=== PATIENT | male | born 1990 | race Caucasian/White ===

== ENCOUNTER 2018-12-04 02:44 | Emergency (ER) | payer OTHER ==
[2018-12-04 02:53] VITALS: BP 133/98; PULSE 125; TEMP 97.6; BMI 20.3
[2018-12-04] MEDS ORDERED: AMPICILLIN NA/SULBACTAM NA 1.5 GM in SODIUM CHLORIDE 100 ML IVPB ONE (03:35)
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
== END 2018-12-04 04:49 | disposition short-term general hospital (02) ==
LOC: JER 02:44
PROC: 3E03329 Introduction of Other Anti-infective into Peripheral Vein, Percutaneous Approach (ICD-10-PCS; principal; 2018-12-04)
PROC: 4A07X0Z Measurement of Visual Acuity, External Approach (ICD-10-PCS; 2018-12-04)
DX: S05.12XA Contusion of eyeball and orbital tissues, left eye, initial encounter (principal); Y00.XXXA Assault by blunt object, initial encounter; Y93.89 Activity, other specified; Y92.89 Other specified places as the place of occurrence of the external cause; Y99.8 Other external cause status; Y07.6 Multiple perpetrators of maltreatment and neglect
CPT/HCPCS: 70480-TC; 96365; 99173; 99282-25

== ENCOUNTER 2019-09-28 19:35 | Emergency (ER) | payer OTHER ==
[2019-09-28 19:39] VITALS: BMI 21.7
[2019-09-28 19:53] VITALS: BP 125/71; PULSE 89; TEMP 97.9
--- NOTE | 2019-09-28 22:15 | PDOC ---
Documentation entered by Juancarlos Roman SCRIBE, acting as scribe for Itz Gonzalez MD. Itz Gonzalez MD: This documentation has been prepared by the Abel barr Angel, SCRIBE, under my direction and personally reviewed by me in its entirety. I confirm that the documentation accurately reflects all work, treatment, procedures, and medical decision making performed by me. History of Present Illness - General Chief Complaint: Ear Problem Stated Complaint: NOTED BLOOD FROM LT EAR Time Seen by Provider: 09/28/19 19:41 History Source: Patient Exam Limitations: No Limitations - History of Present Illness Initial Comments: 09/28/19 20:06 The patient is a 29 year old male with no significant past medical history who presents to the ED with blood coming from the left ear. The patient denies any ear pain or trauma. The patients ear is not bleeding here in the ED. Assessment and plan: This is a 29-year-old male who comes in complaining that there was some blood coming from his ear. There is no bleeding from the ear at this time. On my exam there was some small amount of dried blood in the external canal otherwise no evidence of trauma and the tympanic membrane was normal and intact. Patient reassured and discharged home 09/28/19 20:08 Past History - Medical History Allergies/Adverse Reactions: Allergies Allergy/AdvReac Type Severity Reaction Status Date / Time acetaminophen Allergy Verified 07/07/19 06:56 [From Tylenol-Codeine] codeine Allergy Verified 07/07/19 06:56 [From Tylenol-Codeine] Home Medications: Ambulatory Orders NK [No Known Home Medication] 09/28/19 COPD: No Psychiatric Problems: Yes (ANXIETY.) - Surgical History Abdominal Surgery: Yes Appendectomy: Yes - Immunization History Immunization Up to Date: No - Psycho-Social/Smoking History Smoking History: Never smoked Have you smoked in the past 12 months: Yes Number of Cigarettes Smoked Daily: 10 Review of Systems - Review of Systems Able to Perform ROS?: Yes Comments:: 09/28/19 20:09 General: No fevers or chills, no weakness, no weight loss HEENT: +Bleeding from left ear. No change in vision. No sore throat. No ear pain CardioVascular: No chest pain or shortness of breath Respiratory:No cough, or wheezing. Gastrointestinal: no nausea, vomiting, diarrhea or constipation, No rectal bleeding Genitourinary: No dysuria, hematuria, or frequency Musculoskeletal: No joint or muscle pain or swelling Neurologic: No headache, vertigo, dizziness or loss of consciousness Psychiatric: nor depression Skin: No rashes or easy bruising Endocrine: no increased thirst or abnormal weight change Allergic: no skin or latex allergy All other systems reviewed and normal *Physical Exam - Vital Signs Last Vital Signs Temp Pulse Resp BP Pulse Ox 97.9 F 89 16 125/71 96 09/28/19 19:36 09/28/19 19:36 09/28/19 19:36 09/28/19 19:36 09/28/19 19:36 - Physical Exam 09/28/19 20:09 GENERAL: The patient is awake, alert, and fully oriented, in no acute distress. HEAD: Normal with no signs of trauma. EYES: Pupils equal, round and reactive to light, extraocular movements intact, sclera anicteric, conjunctiva clear. EAR: +Small abrasion in the floor of the ear canal. Tympanic membrane intact and normal. EXTREMITIES: Normal range of motion, no edema. NEUROLOGICAL: Normal speech, normal gait. PSYCH: Normal mood, normal affect. SKIN: Warm, Dry, normal turgor, no rashes or lesions noted. Discharge - Discharge Information Problems reviewed: Yes Clinical Impression/Diagnosis: Abrasion of left ear canal Qualifiers: Encounter type: initial encounter Qualified Code(s): S00.412A - Abrasion of left ear, initial encounter Condition: Stable Disposition: HOME - Admission No - Follow up/Referral Referrals: Luis Stafford MD [Primary Care Provider] - - Patient Discharge Instructions Additional Instructions: Return to the emergency department immediately with ANY new, persistent or worsening symptoms. Continue any medications as previously prescribed by your physician. You should follow up with your primary doctor as soon as possible regarding leobardo tapia's emergency department visit. . Please make sure your doctor reviews the results of your emergency evaluation. Thank you for coming to the Emergency Department today for your care. It was a pleasure to see you today. Please note that your evaluation is INCOMPLETE until you follow-up with your doctor. - Post Discharge Activity
== END 2019-09-28 20:12 | disposition home or self-care (01) ==
LOC: FER 19:35
DX: S00.412A Abrasion of left ear, initial encounter (principal)
CPT/HCPCS: 99282-25

== ENCOUNTER 2020-10-02 17:19 | Emergency (ER) | payer OTHER ==
[2020-10-02 17:31] VITALS: BP 130/93; PULSE 94; TEMP 98.3; BMI 25.8
[2020-10-02] MEDS ORDERED: FAMOTIDINE 20 MG/50 ML IVPB 20 MG/50 ML MG IVPB ONE ×2 (17:36→18:04)
[2020-10-02] MEDS ORDERED: methylPREDNISolone NA SUCC 125 MG/2 ML VIAL IVPUSH ONE (17:40)
[2020-10-02] MEDS ORDERED: SODIUM CHLORIDE 0.9% 1000 ML INFUS.BAG IV ONE (17:43)
[2020-10-02] MEDS ORDERED: methylPREDNISolone NA SUCC 125 MG/2 ML VIAL ONE (18:04)
== END 2020-10-02 21:00 | disposition home or self-care (01) ==
LOC: JER 17:19
PROC: 3E033GC Introduction of Other Therapeutic Substance into Peripheral Vein, Percutaneous Approach (ICD-10-PCS; principal; 2020-10-02)
PROC: 3E033GC Introduction of Other Therapeutic Substance into Peripheral Vein, Percutaneous Approach (ICD-10-PCS; 2020-10-02)
PROC: 3E033GC Introduction of Other Therapeutic Substance into Peripheral Vein, Percutaneous Approach (ICD-10-PCS; 2020-10-02)
DX: T78.40XA Allergy, unspecified, initial encounter (principal)
CPT/HCPCS: 99284-25

== ENCOUNTER 2021-03-14 21:49 | Emergency (ER) | payer OTHER ==
[2021-03-14 22:15] VITALS: BP 139/84; PULSE 100; TEMP 98.2; BMI 20.6
[2021-03-14] MEDS ORDERED: IBUPROFEN 600 MG TABLET (FP) PO ONE ×2 (22:37→22:38)
== END 2021-03-14 22:44 | disposition home or self-care (01) ==
LOC: FER 21:49
DX: R07.89 Other chest pain (principal)
CPT/HCPCS: 71046-TC-FY; 99283-25

== ENCOUNTER 2021-05-11 11:13 | Emergency (ER) | payer OTHER ==
[2021-05-11 11:31] VITALS: BP 96/68; PULSE 80; TEMP 98.2; BMI 19.5
[2021-05-11] MEDS ORDERED: ACETAMINOPHEN 1000 MG/100 ML BAG IVPB ONE (11:39)
[2021-05-11] MEDS ORDERED: ACETAMINOPHEN INJECTION 100 ML IVPB ONE (11:52)
[2021-05-11 12:15] LABS: ALBUMIN 4.5 g/dl (3.4-5.0); BILIRUBIN,TOTAL 0.9 mg/dl (0.2-1); CALCIUM 9.8 mg/dl (8.5-10); CREATININE 1.6 mg/dl (0.55-1.3); TOT PROT 7.5 g/dl (6.4-8.2)
[2021-05-11 12:32] LABS: EPITHELIAL CELLS MANY /hpf
[2021-05-11 12:55] LABS: BASO % 0.5 % (0-2.0); EOS % 0.2 % (0-4.5); LYMPH % 34.5 % (8-40); MCH 29.6 pg (25.7-33.7); MCHC 34.8 g/dl (32.0-35.9); MEAN CELL VOLUME 85.2 fl (80-96); MEAN PLT VOLUME 9.2 fl (7.5-11.1); MONO % 8.4 % (3.8-10.2); NEUT % 56.4 % (42.8-82.8); PLATELET COUNT 257 10^3/uL (134-434); RBC 5.41 M/mm3 (4.00-5.60); RDW 13.7 % (11.9-15.9); WHITE BLOOD COUNT 8.4 K/mm3 (4.0-10.0)
== END 2021-05-11 14:16 | disposition home or self-care (01) ==
LOC: FER 11:13
PROC: 3E0333Z Introduction of Anti-inflammatory into Peripheral Vein, Percutaneous Approach (ICD-10-PCS; principal; 2021-05-11)
DX: N39.0 Urinary tract infection, site not specified (principal)
CPT/HCPCS: 36415; 76700-TC; 80053; 81003; 81015; 83690; 85025; 87086; 96374; 99285-25

== ENCOUNTER 2023-03-05 16:39 | Emergency (ER) | payer OTHER ==
[2023-03-05 17:01] VITALS: BP 147/76; PULSE 73; RESP 20; TEMP 98.8; BMI 20.2
== END 2023-03-05 19:19 | disposition home or self-care (01) ==
LOC: FER 16:39
DX: M79.10 Myalgia, unspecified site (principal); J32.9 Chronic sinusitis, unspecified; R68.83 Chills (without fever); M25.50 Pain in unspecified joint
CPT/HCPCS: 70486-TC; 99284-25

== ENCOUNTER 2023-03-10 13:57 | Emergency (ER) | payer OTHER ==
[2023-03-10 14:34] VITALS: BP 129/66; PULSE 65; RESP 16; TEMP 98.1; BMI 19.5
== END 2023-03-10 16:34 | disposition home or self-care (01) ==
LOC: FER 13:57
DX: R07.9 Chest pain, unspecified (principal)
CPT/HCPCS: 71046-TC-FY; 93005; 99284-25

== ENCOUNTER 2023-03-10 20:30 | Emergency (ER) | payer OTHER ==
[2023-03-10 20:38] VITALS: BP 139/93; PULSE 56; RESP 16; TEMP 98.5; BMI 20.2
[2023-03-10 21:13] LABS: HEMATOCRIT 37.8 % (35.4-49); HEMOGLOBIN 13.1 G/dL (11.7-16.9); MCH 30.6 pg (25.7-33.7); MCHC 34.7 g/dl (32.0-35.9); MEAN CELL VOLUME 88.3 fl (80-96); MEAN PLT VOLUME 9.5 fl (7.5-11.1); PLATELET COUNT 185.5 10^3/uL (134-434); RBC 4.28 10^6/uL (4.00-5.60); RDW 14.3 % (11.9-15.9)
[2023-03-10 21:26] LABS: ALBUMIN 4.1 g/dl (3.4-5.0); BILIRUBIN,TOTAL 0.4 mg/dl (0.2-1); CALCIUM 8.9 mg/dl (8.5-10.1); CREATININE 0.9 mg/dl (0.6-1.3); PLATELET ESTIMATE ADEQUATE; POTASSIUM 3.7 mmol/L (3.5-5.1); TOT PROT 6.1 g/dl (6.4-8.2)
== END 2023-03-10 21:49 | disposition home or self-care (01) ==
LOC: FER 20:30
DX: R53.83 Other fatigue (principal); R53.81 Other malaise; R09.81 Nasal congestion; M79.604 Pain in right leg; M79.605 Pain in left leg; B34.9 Viral infection, unspecified; Z20.822 Contact with and (suspected) exposure to COVID-19
CPT/HCPCS: 0241U-QW; 36415; 80053; 84484; 85027; 99283-25

== ENCOUNTER → 2023-03-10 | Emergency (ER) | payer OTHER ==
[~2023-03-10] MED LIST: LACTATED RINGERS SOLUTION 1000 ML INFUS.BAG IV ONE
== END | disposition left against medical advice (07) ==
LOC: FER 18:17
DX: R07.89 Other chest pain (principal); R53.83 Other fatigue; M79.10 Myalgia, unspecified site
CPT/HCPCS: 99281-25

== ENCOUNTER 2023-04-02 16:52 | Emergency (ER) | payer OTHER ==
[2023-04-02 16:58] VITALS: BP 128/79; PULSE 108; RESP 18; TEMP 96.5; BMI 18.1
[2023-04-02] MEDS ORDERED: KETOROLAC TROMETHAMINE 30 MG/1 ML VIAL ONE (17:56)
[2023-04-02] MEDS: KETOROLAC TROMETHAMINE 30 MG/1 ML VIAL IVPUSH ONE (18:09)
[2023-04-02] MEDS: SODIUM CHLORIDE 0.9% 500 ML INFUS.BAG IV ONE (18:09)
[2023-04-02 18:12] LABS: BASO % 0.1 % (0-2.0); HEMATOCRIT 43.9 % (35.4-49); HEMOGLOBIN 14.7 GM/dL (11.7-16.9); LYMPH % 7.6 % (8-40); MCH 29.3 pg (25.7-33.7); MCHC 33.5 g/dl (32.0-35.9); MEAN CELL VOLUME 87.6 fl (80-96); MONO % 2.5 % (3.8-10.2); NEUT % 89.8 % (42.8-82.8); PLATELET COUNT 284 10^3/uL (134-434); RBC 5.01 M/mm3 (4.00-5.60); RDW 13.7 % (11.9-15.9)
[2023-04-02 18:44] LABS: POTASSIUM 3.7 mmol/L (3.5-5.1)
[2023-04-02 18:46] LABS: BLOOD UREA NITROGEN 18.2 mg/dL (7-18); CALCIUM 9.9 mg/dL (8.5-10.1)
[2023-04-02 18:47] LABS: ALBUMIN 4.4 g/dl (3.4-5.0)
[2023-04-02 18:51] LABS: BILIRUBIN,TOTAL 0.5 mg/dL (0.2-1); TOT PROT 7.9 g/dl (6.4-8.2)
[2023-04-03] MEDS ORDERED: DIPHTH,PERTUSS(ACELL),TET 0.5 ML DISP.SYRIN IM ONE (00:44)
[2023-04-03] MEDS: DIPHTH,PERTUSS(ACELL),TET 0.5 ML DISP.SYRIN IM ONE (00:58)
== END 2023-04-03 01:05 | disposition home or self-care (01) ==
LOC: JER 16:52
PROC: 3E0333Z Introduction of Anti-inflammatory into Peripheral Vein, Percutaneous Approach (ICD-10-PCS; principal; 2023-04-02)
PROC: 3E0234Z Introduction of Serum, Toxoid and Vaccine into Muscle, Percutaneous Approach (ICD-10-PCS; 2023-04-02)
DX: R51.9 Headache, unspecified (principal); J32.4 Chronic pansinusitis; R09.81 Nasal congestion; J34.89 Other specified disorders of nose and nasal sinuses; R22.0 Localized swelling, mass and lump, head; Z20.822 Contact with and (suspected) exposure to COVID-19
CPT/HCPCS: 0241U-QW; 36415; 70150-TC-FY; 70450-TC; 70486-TC; 71046-TC-FY; 80053; 85025; 90471; 90715; 93005; 93010; 96374; 99285-25

== ENCOUNTER 2023-04-30 13:36 | Inpatient (IN) | payer OTHER ==
[2023-04-30 14:49] VITALS: BMI 16.5
[2023-04-30] MEDS ORDERED: BISMUTH SUBSALICYLATE 524 MG/30 ML PO PRN (17:39)
[2023-04-30] MEDS ORDERED: IBUPROFEN 400 MG TABLET (FP) PO PRN (17:39)
[2023-04-30] MEDS ORDERED: MAG HYDROX/AL HYDROX/SIMETH 30 ML UNIT-DOSE CUP PO PRN (17:39)
[2023-04-30] MEDS ORDERED: LOPERAMIDE HCL 2 MG CAPSULE PO PRN (17:39)
[2023-04-30] MEDS ORDERED: MAGNESIUM HYDROX 2400MG/30ML ORAL SUSPENSION 30 ML CUP PO PRN (17:39)
[2023-04-30] MEDS ORDERED: BENZOCAINE/MENTHOL (CHLORASEPTIC ) LOZENGE MM PRN (17:39)
[2023-04-30] MEDS ORDERED: NALOXONE HCL 0.4 MG/ML VIAL IM PRN (17:39)
[2023-04-30] MEDS ORDERED: guaiFENesin 600 MG TABLET.ER (FP) PO PRN (17:39)
[2023-04-30] MEDS ORDERED: NICOTINE POLACRILEX 2 MG LOZENGE BC PRN (17:39)
[2023-04-30] MEDS ORDERED: NALOXONE HCL (KLOXXADO) 8 MG SPRAY NS PRN (17:39)
[2023-04-30] MEDS ORDERED: NICOTINE POLACRILEX 2 MG GUM BUC PRN (17:39)
[2023-04-30] MEDS ORDERED: P-EPHED 60MG/TRIPROLIDI 2.5MG TABLET PO PRN (17:39)
[2023-04-30] MEDS ORDERED: DICYCLOMINE HCL 10 MG CAPSULE PO PRN (17:39)
[2023-04-30] MEDS ORDERED: POLYETHYLENE GLYCOL (HEALTHYLAX) 3350 17 GM PACKET PO PRN (17:39)
[2023-04-30] MEDS ORDERED: BENZONATATE 200 MG CAPSULE PO PRN (17:39)
[2023-04-30] MEDS: methaDONE HCL 10 MG TABLET (FOR DETOX USE ONLY) PO ONE (18:30)
[2023-04-30] MEDS ORDERED: TRIMETHOBENZAMIDE HCL 200MG/2ML INJ IM ONE (18:56)
[2023-04-30] MEDS ORDERED: methaDONE HCL 10 MG TABLET (FOR DETOX USE ONLY) ONE (18:56)
[2023-04-30] MEDS: TRIMETHOBENZAMIDE HCL 200MG/2ML INJ IM ONE (19:00)
[2023-04-30] MEDS: diazePAM 5 MG TABLET PO PRN (19:33)
[2023-04-30] MEDS: IBUPROFEN 600 MG TABLET (FP) PO PRN (19:33)
[2023-04-30] MEDS: cloNIDine HCL 0.1 MG TABLET PO PRN (19:33)
[2023-04-30] MEDS: THIAMINE HCL 100 MG TABLET (FP) PO SCH (22:53)
[2023-04-30] MEDS: MELATONIN 5 MG TABLETS PO SCH (22:53)
[2023-04-30] MEDS: METHOCARBAMOL 500 MG TABLET PO PRN (22:54)
[2023-05-01] MEDS: NICOTINE 7 MG/24 HOURS TOPICAL PATCH TD SCH (10:41)
[2023-05-01] MEDS: PRENATAL VITAMINS W/ FOLIC ACID TABLET (FP) PO SCH (10:41)
[2023-05-01 11:49] LABS: POTASSIUM 3.7 mmol/L (3.5-5.1)
[2023-05-01 11:54] LABS: ALBUMIN 4.6 g/dl (3.4-5.0); BLOOD UREA NITROGEN 21.2 mg/dL (7-18)
[2023-05-01 11:56] LABS: CALCIUM 10.4 mg/dL (8.5-10.1); HEMATOCRIT 47.8 % (35.4-49); HEMOGLOBIN 16.7 GM/dL (11.7-16.9); MEAN CELL VOLUME 85.6 fl (80-96); PLATELET COUNT 410 10^3/uL (134-434); RBC 5.59 M/mm3 (4.00-5.60); RDW 13.9 % (11.9-15.9); WHITE BLOOD COUNT 12.4 K/mm3 (4.0-10.0)
[2023-05-01 11:58] LABS: TOT PROT 8.7 g/dl (6.4-8.2)
[2023-05-02] MEDS: methaDONE HCL 10 MG TABLET (FOR DETOX USE ONLY) PO ONE (10:06)
[2023-05-02] MEDS ORDERED: diazePAM 5 MG TABLET PO PRN (10:30)
[2023-05-02] MEDS: LORATADINE 10 MG TABLET PO SCH (22:30)
[2023-05-03] MEDS ORDERED: [UNRECOGNIZED DRUG - REMARK] NS SCH (22:00)
[2023-05-03] MEDS: FLUTICASONE PROP 0.05% 16 GM NASAL SPRAY NS SCH (22:12)
[2023-05-04] MEDS: methaDONE HCL 10 MG TABLET (FOR DETOX USE ONLY) PO ONE (10:15)
[2023-05-04 12:24] LABS: BASO % 0.9 % (0-2.0); EOS % 0.5 % (0-4.5); HEMATOCRIT 47.1 % (35.4-49); HEMOGLOBIN 16.3 GM/dL (11.7-16.9); LYMPH % 36.9 % (8-40); MCH 29.9 pg (25.7-33.7); MCHC 34.6 g/dl (32.0-35.9); MEAN CELL VOLUME 86.2 fl (80-96); MONO % 6.8 % (3.8-10.2); NEUT % 54.9 % (42.8-82.8); PLATELET COUNT 344 10^3/uL (134-434); RBC 5.47 M/mm3 (4.00-5.60); RDW 13.4 % (11.9-15.9); WHITE BLOOD COUNT 9.3 K/mm3 (4.0-10.0)
[2023-05-04 13:02] LABS: POTASSIUM 3.4 mmol/L (3.5-5.1)
[2023-05-04 13:11] LABS: BLOOD UREA NITROGEN 22.1 mg/dL (7-18); CALCIUM 9.6 mg/dL (8.5-10.1); CREATININE 0.9 mg/dL (0.55-1.3)
[2023-05-04 13:12] LABS: ALBUMIN 3.8 g/dl (3.4-5.0); TOT PROT 7.4 g/dl (6.4-8.2)
[2023-05-04 13:20] LABS: BILIRUBIN,TOTAL 1.3 mg/dL (0.2-1)
[2023-05-04] MEDS: POTASSIUM CHLORIDE ORAL LIQUID 20 MEQ/15 ML PO SCH (14:31)
[2023-05-05 09:29] VITALS: BP 128/74; PULSE 72; RESP 16; TEMP 98.4
== END 2023-05-05 14:30 | disposition home or self-care (01) | DRG 773 ==
LOC: YASAS 13:36 → Y6N 18:09
PROVIDERS: ADMIT Allergy & Immunology; ATTEND Surgery
PROC: HZ2ZZZZ Detoxification Services for Substance Abuse Treatment (ICD-10-PCS; principal; 2023-04-30)
DX: F11.23 Opioid dependence with withdrawal (principal); F13.20 Sedative, hypnotic or anxiolytic dependence, uncomplicated; F14.10 Cocaine abuse, uncomplicated; F17.210 Nicotine dependence, cigarettes, uncomplicated
CPT/HCPCS: 36415; 80053; 80305; 85025; 85027; 86780; 87635; 93005; 93010

== ENCOUNTER 2023-09-18 09:05 | Emergency (ER) | payer OTHER ==
[2023-09-18 09:11] VITALS: TEMP 98.7; BMI 24.4
[2023-09-18 10:07] LABS: BASO % 0.6 % (0-2.0); EOS % 1.2 % (0-4.5); LYMPH % 28.1 % (8-40); MCH 29.8 pg (25.7-33.7); MCHC 34.9 g/dl (32.0-35.9); MEAN CELL VOLUME 85.2 fl (80-96); MEAN PLT VOLUME 8.6 fl (7.5-11.1); MONO % 5.1 % (3.8-10.2); PLATELET COUNT 212 10^3/uL (134-434); RBC 5.05 M/mm3 (4.00-5.60); RDW 13.3 % (11.9-15.9); WHITE BLOOD COUNT 9.2 K/mm3 (4.0-10.0)
[2023-09-18 10:31] LABS: POTASSIUM 3.3 mmol/L (3.5-5.1)
[2023-09-18 10:33] LABS: MAGNESIUM 1.8 mg/dL (1.8-2.4)
[2023-09-18 10:36] LABS: CREATININE 1.1 mg/dL (0.55-1.3); PHOSPHOROUS 2.7 mg/dL (2.5-4.9)
[2023-09-18 12:59] VITALS: BP 120/68; PULSE 78; RESP 18
== END 2023-09-18 13:23 | disposition home or self-care (01) ==
LOC: JER 09:05
DX: R00.2 Palpitations (principal); R07.89 Other chest pain; F17.210 Nicotine dependence, cigarettes, uncomplicated
CPT/HCPCS: 36415; 80048; 83735; 84100; 84439; 84443; 84484; 85025; 93005; 93010; 99284-25

== ENCOUNTER 2023-11-27 14:46 | Inpatient (IN) | payer OTHER ==
[2023-11-27 15:26] VITALS: BMI 18.3
[2023-11-27] MEDS ORDERED: ACETAMINOPHEN 325 MG TABLET (FP) PO PRN (17:04)
[2023-11-27] MEDS ORDERED: DICYCLOMINE HCL 10 MG CAPSULE PO PRN (17:04)
[2023-11-27] MEDS ORDERED: MAGNESIUM HYDROX 2400MG/30ML ORAL SUSPENSION 30 ML CUP PO PRN (17:04)
[2023-11-27] MEDS ORDERED: guaiFENesin 600 MG TABLET.ER (FP) PO PRN (17:04)
[2023-11-27] MEDS ORDERED: BENZOCAINE/MENTHOL (CHLORASEPTIC ) LOZENGE MM PRN (17:04)
[2023-11-27] MEDS ORDERED: IBUPROFEN 600 MG TABLET (FP) PO PRN (17:04)
[2023-11-27] MEDS ORDERED: NALOXONE (NARCAN) HCL 4 MG/0.1 ML SPRAY NS PRN (17:04)
[2023-11-27] MEDS ORDERED: NALOXONE HCL 0.4 MG/ML VIAL IM PRN (17:04)
[2023-11-27] MEDS ORDERED: IBUPROFEN 400 MG TABLET (FP) PO PRN (17:04)
[2023-11-27] MEDS ORDERED: POLYETHYLENE GLYCOL (HEALTHYLAX) 3350 17 GM PACKET PO PRN (17:04)
[2023-11-27] MEDS ORDERED: LOPERAMIDE HCL 2 MG CAPSULE PO PRN (17:04)
[2023-11-27] MEDS ORDERED: BENZONATATE 200 MG CAPSULE PO PRN (17:04)
[2023-11-27] MEDS ORDERED: BISMUTH SUBSALICYLATE 524 MG/30 ML PO PRN (17:04)
[2023-11-27] MEDS ORDERED: cloNIDine HCL 0.1 MG TABLET PO PRN (17:07)
[2023-11-27] MEDS ORDERED: methaDONE HCL 10 MG TABLET (FOR DETOX USE ONLY) ONE (17:31)
[2023-11-27] MEDS ORDERED: ONDANSETRON *ODT* 4 MG TABLET ONE (17:31)
[2023-11-27] MEDS: methaDONE HCL 10 MG TABLET (FOR DETOX USE ONLY) PO ONE (17:36)
[2023-11-27] MEDS: ONDANSETRON *ODT* 4 MG TABLET SL PRN (17:37)
[2023-11-27] MEDS: NICOTINE POLACRILEX 2 MG GUM BUC PRN (19:24)
[2023-11-27] MEDS: THIAMINE 100 MG TABLET PO SCH (22:19)
[2023-11-27] MEDS: MELATONIN 5 MG TABLETS PO SCH (22:19)
[2023-11-28 09:58] LABS: HEMATOCRIT 42.1 % (35.4-49); HEMOGLOBIN 14.7 GM/dL (11.7-16.9); MCH 30.4 pg (25.7-33.7); MCHC 34.9 g/dl (32.0-35.9); MEAN CELL VOLUME 87.1 fl (80-96); MEAN PLT VOLUME 9.6 fl (7.5-11.1); PLATELET COUNT 223 10^3/uL (134-434); RBC 4.83 M/mm3 (4.00-5.60); RDW 14.1 % (11.9-15.9); WHITE BLOOD COUNT 7.4 K/mm3 (4.0-10.0)
[2023-11-28 10:10] LABS: CHLORIDE 105 mmol/L (98-107); POTASSIUM 4.2 mmol/L (3.5-5.1); SODIUM 140 mmol/L (136-145)
[2023-11-28 10:16] LABS: CALCIUM 9.5 mg/dL (8.5-10.1)
[2023-11-28 10:17] LABS: ALBUMIN 3.6 g/dl (3.4-5.0); ANION GAP 5 mmol/L (4-13); CO2 30 mmol/L (21-32); GLUCOSE,RANDOM 81 mg/dL (74-106)
[2023-11-28 10:20] LABS: CREATININE 0.9 mg/dL (0.55-1.3); SGOT/AST 14 U/L (15-37); SGPT/ALT 14 U/L (13-61)
[2023-11-28 10:22] LABS: TOT PROT 6.4 g/dl (6.4-8.2)
[2023-11-28 10:23] LABS: ALK PHOS 60 U/L (45-117)
[2023-11-28] MEDS: PRENATAL VITAMINS W/ FOLIC ACID TABLET (FP) PO SCH (10:33)
[2023-11-28] MEDS: NICOTINE 21 MG/24 HOURS TOPICAL PATCH TD SCH (10:34)
[2023-11-28 10:57] LABS: BILIRUBIN,TOTAL 0.8 mg/dL (0.2-1)
[2023-11-28] MEDS: METHOCARBAMOL 500 MG TABLET PO PRN (21:37)
[2023-11-28] MEDS: hydrOXYzine PAMOATE 25 MG CAPSULE (FP) PO PRN (21:37)
[2023-11-29] MEDS: methaDONE HCL 10 MG TABLET (FOR DETOX USE ONLY) PO ONE (10:39)
[2023-11-29] MEDS: diazePAM 5 MG TABLET PO PRN (22:29)
[2023-11-29] MEDS: FLUTICASONE PROP 0.05% 16 GM NASAL SPRAY NS SCH (22:30)
[2023-11-30] MEDS: MAG HYDROX/AL HYDROX/SIMETH 30 ML UNIT-DOSE CUP PO PRN (09:31)
[2023-12-01] MEDS: methaDONE HCL 10 MG TABLET (FOR DETOX USE ONLY) PO ONE (09:08)
[2023-12-02 06:56] VITALS: BP 123/74; PULSE 75; RESP 16; TEMP 97.3
== END 2023-12-02 08:25 | disposition other institution (70) | DRG 773 ==
LOC: YASAS 14:46 → Y6N 17:03
PROVIDERS: ADMIT Allergy & Immunology; ATTEND Surgery
PROC: HZ2ZZZZ Detoxification Services for Substance Abuse Treatment (ICD-10-PCS; principal; 2023-11-27)
DX: F11.23 Opioid dependence with withdrawal (principal); F14.20 Cocaine dependence, uncomplicated; F17.210 Nicotine dependence, cigarettes, uncomplicated; M06.9 Rheumatoid arthritis, unspecified; R09.81 Nasal congestion; Z88.8 Allergy status to other drugs, medicaments and biological substances
CPT/HCPCS: 36415; 80053; 80305; 80307; 85027; 86780; 93005; 93010; Q0162

== ENCOUNTER 2024-07-23 20:01 | Emergency (ER) | payer OTHER ==
[2024-07-23 20:19] VITALS: BP 117/89; BMI 20.2
[2024-07-23] MEDS ORDERED: KETOROLAC TROMETHAMINE 30 MG/1 ML VIAL ONE (20:34)
[2024-07-23] MEDS: KETOROLAC TROMETHAMINE 30 MG/1 ML VIAL IVPUSH ONE (20:38)
[2024-07-23] MEDS: SODIUM CHLORIDE 1,000 ML IV STA (20:38)
[2024-07-23 20:46] LABS: HEMATOCRIT 45.2 % (40.1-51.0); HEMOGLOBIN 15.7 g/dL (13.7-17.5); MCHC 34.7 g/dl (32.3-36.5); MEAN PLT VOLUME 10.5 fl (9.4-12.4); PLATELET COUNT 245 x10^3/uL (163-337); RDW 12.7 % (12.0-15.6)
[2024-07-23 20:59] VITALS: PULSE 112; RESP 18
[2024-07-23 21:05] LABS: ALBUMIN 4.4 g/dl (3.4-5.0); BILIRUBIN,TOTAL 0.7 mg/dl (0.2-1); CALCIUM 9.3 mg/dl (8.5-10.1); CREATININE 0.8 mg/dl (0.6-1.3); POTASSIUM 3.7 mmol/L (3.5-5.1); TOT PROT 6.9 g/dl (6.4-8.2)
[2024-07-23 22:06] VITALS: TEMP 100.3
[2024-07-23] MEDS ORDERED: PENICILLIN G BENZATHINE 1,200,000 UNIT/2 ML PFS IM ONE (23:01)
[2024-07-23] MEDS: PENICILLIN G BENZATHINE 1,200,000 UNIT/2 ML PFS IM ONE (23:05)
== END 2024-07-23 23:15 | disposition home or self-care (01) ==
LOC: FER 20:01
PROC: 3E0333Z Introduction of Anti-inflammatory into Peripheral Vein, Percutaneous Approach (ICD-10-PCS; principal; 2024-07-23)
PROC: 3E0337Z Introduction of Electrolytic and Water Balance Substance into Peripheral Vein, Percutaneous Approach (ICD-10-PCS; 2024-07-23)
PROC: 3E02329 Introduction of Other Anti-infective into Muscle, Percutaneous Approach (ICD-10-PCS; 2024-07-23)
DX: J02.0 Streptococcal pharyngitis (principal); R50.9 Fever, unspecified; M79.10 Myalgia, unspecified site; R00.0 Tachycardia, unspecified; E86.0 Dehydration
CPT/HCPCS: 0241U-QW; 36415; 80053; 81003; 85025; 87651; 99284-25